=== PATIENT | male | born 1990 | race Caucasian/White ===

== ENCOUNTER 2023-04-08 11:47 | Outpatient (CLI) | payer MEDICAID, SELFPAY | END 2023-04-08 11:48 | disposition home or self-care (01) | LOC: AMB 04-09 12:35 | PROVIDERS: Visit Provider Family Medicine | DX: R55 Syncope and collapse (principal); T63.441A Toxic effect of venom of bees, accidental (unintentional), initial encounter; Y92.79 Other farm location as the place of occurrence of the external cause | CPT/HCPCS: A0425; A0427 ==

== ENCOUNTER 2023-04-08 12:27 | Emergency (ER) | payer MEDICAID, SELFPAY ==
[2023-04-08] VITALS (12 sets, daily range): BP systolic 104–152; BP diastolic 55–74; PULSE 72–80; RESP 11–16; TEMP 35; O2SAT 97–100; BMI 23.4
--- NOTE | 2023-04-08 12:32 | ED.GENADULT ---
HPI - General Adult General Time Seen by Provider: 12:32 Date Seen: 04/08/23 Chief complaint: Altered Mental Status Stated complaint: High blood sugar, AMS Time Seen by Provider: 04/08/23 12:32 Source: patient and RN notes reviewed Mode of arrival: EMS Limitations: no limitations History of Present Illness HPI narrative: Khadar is a very pleasant 32-year-old type 1 diabetic with history of chronic pain in indwelling fentanyl pump who comes to the [facility] via EMS after having been stung by multiple bees with a collapse that followed. Patient notes that he was out by a corn crib today and had at least 4 be bites on his right arm. States that he should them away and still tried to continue to work but then collapsed on the ground after about 4 minutes. He had no difficulty breathing but felt like he was going to . He had no swelling of his face. EMS arrived and the noted slightly low blood pressures but no evidence of tachycardia or excessive swelling. Initial thoughts were perhaps he was having a stroke but he was able to move all extremities per paramedics. They noted significant diaphoresis and started IV fluids and transported patient to [facility]. EN route to the hospital EMS noted some respiratory wheezing although O2 sats were normal. They gave him 1 dose of epinephrine and noted immediate improvement in how he felt. They do note blood sugar elevated greater than 400. Here in the emergency room patient notes that he is feeling better. He shows me his arm where he had the bee stings. He is not experiencing any numbness or tingling of his face mouth tongue or difficulty swallowing. He denies difficulty breathing. He did have an episode of vomiting BP for arrival and felt like he needed to have a bowel movement but did not. He had a bee sting a month ago that did not cause him significant problems. To be fair he was not sure if these were bee stings or hornets today. He notes that his blood sugar runs around 200 chronically. Related Data Previous Rx's Medication Instructions Recorded epinephrine 0.3 mg/0.3 mL 0.3 mg (0.3 mL) IM Q5-15M PRN #2 ea 04/08/23 injection, auto-injector (EpiPen 2-Satish) prednisone 20 mg tablet 20 mg PO BID #4 tabs 04/08/23 Allergies Allergy/AdvReac Type Severity Reaction Status Date / Time No Known Drug Allergies Allergy Verified 04/08/23 12:38 Review of Systems Status of ROS: Reports: 10 or more systems reviewed and unremarkable except as noted in History and below Const: Denies: fever or chills Eyes: Denies: change in vision ENMT: Denies: throat pain, neck pain, difficulty swallowing or hoarseness Cardio: Reports: lightheadedness; Denies: chest pain, edema, swelling of feet/ankles or shortness of breath with exertion Resp: Denies: shortness of breath or cough GI: Reports: abdominal pain (Chronic), nausea and vomiting; Denies: diarrhea or difficulty swallowing : Denies: painful urination Musculo: Denies: neck pain Integ/Breast: Reports: itching, redness and skin tenderness Neuro: Reports: weakness in extremities; Denies: headache or numbness in extremities PFSH PFSH Social History Smoking Status: Former smoker Do you use any of these nicotine containing products: None Second hand tobacco smoke exposure: No How often do you have a drink containing alcohol: monthly or less How many standard drinks containing alcohol do you have on a typical day: 1 or 2 How often do you have six or more drinks on one occasion: Never AUDIT-C Alcohol total score: 1 Non-prescribed substance use: denies use service: No Exam Narrative: Exam Narrative: Khadar is alert and oriented. His eyes are clear. No facial swelling noted GCS of 15. Oral cavity with moist mucous membranes tongue is midline. Neck is supple without lymphadenopathy. Heart is with regular rate and rhythm and lungs are clear bilaterally. No wheezing auscultated at this time. Abdomen soft nontender lower extremities without edema. His right upper deltoid and biceps show areas of erythema. One particular raised area does have a what appears to be a stinger. We do scrapes skin to remove any remnants of stingers. Moving all extremities. Const: Vital Signs, click to edit/add: Vital Signs - 24 hr 04/08/23 12:35 04/08/23 12:39 04/08/23 12:39 Temperature 95 F L Pulse Rate Pulse Rate [Pulse Oximeter] 78 72 74 Respiratory Rate 16 12 11 L Blood Pressure Blood Pressure [Le ft Upper Arm] 152/63 H 152/63 H 141/74 H Pulse Oximetry 97 100 100 Oxygen Delivery Me thod Room Air Room Air 04/08/23 12:53 04/08/23 13:00 04/08/23 13:00 Temperature Pulse Rate 73 76 Pulse Rate [Pulse Oximeter] Respiratory Rate 11 L Blood Pressure Blood Pressure [Le ft Upper Arm] 104/59 L Pulse Oximetry 99 100 100 Oxygen Delivery Me thod 04/08/23 13:02 04/08/23 13:30 04/08/23 14:00 Temperature Pulse Rate 77 79 80 Pulse Rate [Pulse Oximeter] Respiratory Rate Blood Pressure 104/59 L Blood Pressure [Le ft Upper Arm] Pulse Oximetry 99 99 100 Oxygen Delivery Me thod 04/08/23 14:00 04/08/23 14:02 04/08/23 14:30 Temperature Pulse Rate 80 78 Pulse Rate [Pulse Oximeter] 80 Respiratory Rate 14 Blood Pressure 120/60 Blood Pressure [Le ft Upper Arm] 120/60 Pulse Oximetry 100 100 100 Oxygen Delivery Me thod 04/08/23 14:32 04/08/23 16:14 Temperature Pulse Rate 78 Pulse Rate [Pulse Oximeter] 79 Respiratory Rate 15 Blood Pressure 116/55 L Blood Pressure [Le ft Upper Arm] 116/55 L Pulse Oximetry 100 100 Oxygen Delivery Me thod Documenting provider has reviewed patient's vital signs: yes Course Course Hospital Course: At this time patient presents to the [facility] after an atypical anaphylactic episode from bee stings. Stingers were removed and thus I do believe this was from bees. Patient's blood pressure much improved after initial dose of epi. He is also feeling much better. Patient will receive prednisone 40 mg p.o., famotidine 20 mg IV, Benadryl 50 mg IV, 1 L of normal saline. Given the elevated blood sugar which could possibly be a glycogen released from the event or signs of DKA we will need to check blood work which includes a CBC, comprehensive, CRP, urinalysis. Point of care blood sugar at this time for 11. Reevaluation(s) Reevaluation #1: Labs noted do not indicate any evidence of DKA. Will recheck blood sugar and at this point. If time is past that I feel it is safe to give him some insulin without fear of hypoglycemia. 12 units at this time. Patient will be allowed to eat. Reevaluation #2: Patient blood sugar 421. Do request that we give him more regular insulin but he states that his monitor shows that he still dropping any is afraid to drop too much. He is receptive to 6 units of insulin subQ at this time. Vital Signs Vital signs: Initial Vital Signs Pulse Rate 78 04/08/23 12:35 Respiratory Rate 16 04/08/23 12:35 Blood Pressure 152/63 H 04/08/23 12:35 Blood Pressure Mean 92 04/08/23 12:35 Pulse Oximetry 97 04/08/23 12:35 Vital Signs Pulse Rate 78 04/08/23 12:35 Respiratory Rate 16 04/08/23 12:35 Blood Pressure 152/63 H 04/08/23 12:35 Pulse Oximetry 97 04/08/23 12:35 Temperature 95 F L 04/08/23 12:39 Pulse Rate 79 04/08/23 16:14 Respiratory Rate 15 04/08/23 16:14 Blood Pressure 116/55 L 04/08/23 16:14 Pulse Oximetry 100 04/08/23 16:14 Oxygen Delivery Method Room Air 04/08/23 12:39 Medical Decision Making MDM Narrative Medical decision making narrative: 1. Anaphylaxis-seems to be a atypical anaphylactic reaction with no evidence of tachycardia or external swelling. However patient had some respiratory wheezing significant abdominal pain and vomiting. This is the 2nd time patient has recently been stung by a bee. Did remove the stinger from his right arm. Further examination of the body did not reveal any other retained stingers. Patient was given epi by EMS and improved significantly. In the ED given prednisone 40 mg p.o., famotidine 20 mg IV, Benadryl 50 mg IV, 1 L of normal saline and maintenance fluids to follow. He had no recurrence of symptoms and will be monitored for full 4 hours from arrival. I would like him to continue Benadryl 50 mg every 6 hours last dose tomorrow afternoon. I would like him to continue prednisone 20 mg p.o. b.i.d. next dose tomorrow morning. This will be for an additional 2 days. I have also sent a prescription for EpiPen to his pharmacy as he is at great risk for anaphylaxis with future bee stings. 2. Hyperglycemia-patient noted to be ?normal? at approximately 200 glucose. Here he has been consistently elevated over 400. He was given regular insulin 12 units. Will recheck Accu-Chek at this time. Second Accu-Chek notes his blood sugar to be 421. He does agree to 6 units of regular insulin with recheck. 3. Disposition-once blood sugar is normalize should be able to discharge this young man to home. Lab Data Lab results reviewed: Yes I reviewed the patient's lab results Labs: Lab Results 04/08/23 04/08/23 04/08/23 Range/Units 13:16 13:45 14:45 WBC 10.04 (4.50-11.00) K/uL RBC 4.02 L (4.30-5.90) m/uL Hgb 11.6 L (13.5-17.5) gm/dL Hct 35.3 L (37.0-53.0) % MCV 88 (80-100) fL MCH 29 (26-34) pg MCHC 33 (32-36) gm/dL RDW Coeff of Yanique 13.0 (11.5-15.5) % Plt Count 257 (140-440) K/uL Neut % (Auto) 73.4 H (42.0-72.0) % Lymph % (Auto) 19.2 L (20-44) % Williamson % (Auto) 4.9 (0.0-11.0) % Eos % (Auto) 2.1 (0.0-7.0) % Baso % (Auto) 0.1 (0.0-3.0) % Neut # (Auto) 7.40 H (1.7-7.0) K/uL Lymph # (Auto) 1.90 (0.90-2.90) K/uL Williamson # (Auto) 0.50 (0.00-0.90) K/UL Eos # (Auto) 0.21 (0.00-0.50) K/uL Baso # (Auto) 0.01 (0.00-0.30) K/uL Abs Immat Gran (auto) 0.03 (0.00-0.30) K/uL Imm/Tot Granulo (auto) 0.3 % Sodium 135 (135-149) mmol/L Potassium 4.3 (3.6-5.1) mmol/L Chloride 101 (96-114) mmol/L Carbon Dioxide 26 (20-32) mmol/L BUN 23 (5-24) mg/dL Creatinine 1.0 (0.5-1.5) mg/dL Estimated Creat Clear 93.93 Estimated GFR 101 ml/min Glucose 411 H* (60-115) mg/dL Calcium 8.4 (8.4-10.6) mg/dL Total Bilirubin 1.1 (0.1-1.5) mg/dL AST 32 (12-35) U/L ALT 24 (4-50) U/L Alkaline Phosphatase 82 (40-150) U/L C-Reactive Protein < 0.5 L (0.5-1.0) mg/dL Total Protein 6.3 (6.0-8.3) g/dL Albumin 3.7 (3.3-5.0) g/dL Urine Color Yellow (Yellow) Urine Appearance Clear (Clear) Urine pH 6.0 (5.0-8.5) Ur Specific [place] 1.010 (1.000-1.030) Urine Protein Trace A (Negative) Urine Glucose (UA) 2+ A (Negative) Urine Ketones 1+ A (Negative) Urine Blood Negative (Negative) Urine Nitrite Negative (Negative) Urine Bilirubin Negative (Negative) Urine Urobilinogen 0.2 (0.2-1.0) Ur Leukocyte Esterase Negative (Negative) Urine RBC 0-2 (0-2) Urine WBC 0-2 (0-5) Ur Squamous Epith Cells None (None-Few) Urine Bacteria None (None) POC Glucose 431 H* (60-115) mg/dl 04/08/23 04/08/23 Range/Units 14:48 16:30 WBC (4.50-11.00) K/uL RBC (4.30-5.90) m/uL Hgb (13.5-17.5) gm/dL Hct (37.0-53.0) % MCV (80-100) fL MCH (26-34) pg MCHC (32-36) gm/dL RDW Coeff of Yanique (11.5-15.5) % Plt Count (140-440) K/uL Neut % (Auto) (42.0-72.0) % Lymph % (Auto) (20-44) % Williamson % (Auto) (0.0-11.0) % Eos % (Auto) (0.0-7.0) % Baso % (Auto) (0.0-3.0) % Neut # (Auto) (1.7-7.0) K/uL Lymph # (Auto) (0.90-2.90) K/uL Williamson # (Auto) (0.00-0.90) K/UL Eos # (Auto) (0.00-0.50) K/uL Baso # (Auto) (0.00-0.30) K/uL Abs Immat Gran (auto) (0.00-0.30) K/uL Imm/Tot Granulo (auto) % Sodium (135-149) mmol/L Potassium (3.6-5.1) mmol/L Chloride (96-114) mmol/L Carbon Dioxide (20-32) mmol/L BUN (5-24) mg/dL Creatinine (0.5-1.5) mg/dL Estimated Creat Clear Estimated GFR ml/min Glucose (60-115) mg/dL Calcium (8.4-10.6) mg/dL Total Bilirubin (0.1-1.5) mg/dL AST (12-35) U/L ALT (4-50) U/L Alkaline Phosphatase (40-150) U/L C-Reactive Protein (0.5-1.0) mg/dL Total Protein (6.0-8.3) g/dL Albumin (3.3-5.0) g/dL Urine Color (Yellow) Urine Appearance (Clear) Urine pH (5.0-8.5) Ur Specific [place] (1.000-1.030) Urine Protein (Negative) Urine Glucose (UA) (Negative) Urine Ketones (Negative) Urine Blood (Negative) Urine Nitrite (Negative) Urine Bilirubin (Negative) Urine Urobilinogen (0.2-1.0) Ur Leukocyte Esterase (Negative) Urine RBC (0-2) Urine WBC (0-5) Ur Squamous Epith Cells (None-Few) Urine Bacteria (None) POC Glucose 492 H* 421 H* (60-115) mg/dl Critical Care Time Critical Care Time Critical Care Time: Yes Attestation: The patient required my highest level preparedness to intervene emergently and I personally spent this critical care time directly and personally managing the patient. This critical care time included: Obtaining a history; Examining the patient; Pulse oximetry; Ordering and reviewing of studies; Arranging urgent treatment with development of a management plan; Evaluation of patients response to treatment; Frequent reassessment discussions with other providers. This critical care time was performed to assess and manage the high probability of imminent life-threatening deterioration that could result in multiorgan failure. It was exclusive of separate billable procedures and treating other patients and teaching time. Total Critical Care Time in Minutes: 45 Discharge Plan Discharge Clinical Impression: Hyperglycemia Anaphylactic reaction to bee sting Qualifiers: Encounter type: initial encounter Injury intent: accidental or unintentional Qualified Code(s): T63.441A - Toxic effect of venom of bees, accidental (unintentional), initial encounter Patient Disposition: Home, Self-Care Condition: Improved Additional Instructions: 1. Recommend continuing and antihistamine for the next 24 hours. Benadryl 25-50 mg every 6 hours last dose tomorrow afternoon. This is [id number] purchased medication. 2. Recommend continuing prednisone which is a steroid for the next 2 days. Next dose tomorrow morning. Note that this will increase your blood sugars and you may need extra insulin. Sent to your pharmacy. 3. Recommend carrying with you an EpiPen from now on. Today you experienced a anaphylactic reaction to bee stings. This can be life-threatening. If you must give yourself a dose of the EpiPen call 911 or proceed to the hospital immediately. Sent to your pharmacy. Your blood sugars are elevated today. Continue to monitor until they normalize for you. Return to the emergency room as needed. Prescriptions: New prednisone 20 mg tablet 20 mg PO BID Qty: 4 0RF epinephrine [EpiPen 2-Satish] 0.3 mg/0.3 mL auto-injector 0.3 mg IM Q5-15M PRNQty: 2 0RF Rx Instructions: do not exceed 3 doses per episode Stand Alone Forms: [employer] Info Instructions
[2023-04-08 13:24] LABS: Basophils Absolute Auto 0.01 K/uL (0.00-0.30); Basophils Percent Auto 0.1 % (0.0-3.0); Eosinophils Absolute Auto 0.21 K/uL (0.00-0.50); Eosinophils Percent Auto 2.1 % (0.0-7.0); Hematocrit 35.3 % (37.0-53.0); Hemoglobin* 11.6 gm/dL (13.5-17.5); Immature Granulocytes Abs Auto 0.03 K/uL (0.00-0.30); Immature Granulocytes Pct Auto 0.3 %; Lymphocytes Percent Auto 19.2 % (20-44); Mean Corpuscular HGB Conc 33 gm/dL (32-36); Mean Corpuscular Hemoglobin 29 pg (26-34); Mean Corpuscular Volume 88 fL (80-100); Monocytes Percent Auto 4.9 % (0.0-11.0); Neutrophils Percent Auto 73.4 % (42.0-72.0); Platelet Count* 257 K/uL (140-440); Red Blood Count 4.02 m/uL (4.30-5.90); White Blood Count* 10.04 K/uL (4.50-11.00)
[2023-04-08] MEDS: 0.9 % SODIUM CHLORIDE 1000 ml 1,000 ML IV (13:28)
[2023-04-08] MEDS: predniSONE 20 MG TABLET 40 MG PO (13:29)
[2023-04-08 13:30] LABS: Slide Review Reflex No
[2023-04-08] MEDS: diphenhydrAMINE 50 MG/ML inj IVP (13:30)
[2023-04-08] MEDS: FAMOTIDINE 10 MG/ML inj 20 MG IVP (13:30)
[2023-04-08 13:40] LABS: Albumin* 3.7 g/dL (3.3-5.0); Chloride* 101 mmol/L (96-114); Potassium* 4.3 mmol/L (3.6-5.1); Sodium* 135 mmol/L (135-149)
[2023-04-08 13:42] LABS: Bilirubin Total* 1.1 mg/dL (0.1-1.5); Est. Creatinine Clearance* 93.93; Estimated Glomerular Filt Rate 101 ml/min
[2023-04-08 13:43] LABS: Alanine Aminotransferase* 24 U/L (4-50); Alkaline Phosphatase* 82 U/L (40-150); Aspartate Amino Transferase* 32 U/L (12-35); Blood Urea Nitrogen* 23 mg/dL (5-24); Calcium* 8.4 mg/dL (8.4-10.6); Carbon Dioxide* 26 mmol/L (20-32); Total Protein* 6.3 g/dL (6.0-8.3)
[2023-04-08 13:49] LABS: Glucose, Point-of-Care* 431 mg/dl (60-115)
[2023-04-08 13:50] LABS: C Reactive Protein* < 0.5 mg/dL (0.5-1.0)
[2023-04-08 13:51] LABS: Glucose* 411 mg/dL (60-115)
[2023-04-08 14:52] LABS: Appearance Urine Clear (Clear); Bilirubin Urine Negative (Negative); Blood Urine Negative (Negative); Color Urine Yellow (Yellow); Glucose Urine 2+ (Negative); Ketones Urine 1+ (Negative); Leukocyte Esterase Urine Negative (Negative); Nitrite Urine Negative (Negative); Protein Urine Trace (Negative); Urobilinogen Urine 0.2 (0.2-1.0)
[2023-04-08 14:56] LABS: Glucose, Point-of-Care* 492 mg/dl (60-115)
[2023-04-08] MEDS: 0.9 % SODIUM CHLORIDE 1000 ml 1,000 ML 125 ML IV (14:57)
[2023-04-08 14:59] LABS: RBC Urine 0-2 (0-2)
[2023-04-08 15:00] LABS: WBC Urine 0-2 (0-5)
--- NOTE | 2023-04-08 15:15 | ED.NURSE ---
Verified insulin administration with SHIRLEY Keith. 12units regular insulin given subQ. Barcode would not scan at the time of administration. Blood sugar was 492.
[2023-04-08 16:31] LABS: Glucose, Point-of-Care* 421 mg/dl (60-115)
[2023-04-08 17:15] LABS: Glucose, Point-of-Care* 344 mg/dl (60-115)
== END 2023-04-08 17:28 | disposition home or self-care (01) ==
LOC: ED 15:31
PROVIDERS: Emergency Provider Family Medicine
DX: T63.441A Toxic effect of venom of bees, accidental (unintentional), initial encounter (principal); E10.65 Type 1 diabetes mellitus with hyperglycemia
CPT/HCPCS: 36415; 80053; 81001; 82947; 85025; 86140; 96374; 96375; 99285; 99291; J1200; J7030; J7512; S0028